=== PATIENT | female | born 1945 | race Caucasian/White ===

== ENCOUNTER 2016-04-23 22:12 | Observation (INO) | payer MEDICARE, BC, OTHER ==
[2016-04-23] MEDS ORDERED: SODIUM CHLORIDE 0.9% 1,000 ML IV STA ×2 (22:24)
[2016-04-23] MEDS ORDERED: MORPHINE SULFATE 4 MG/ML SYRINGE IV STA (22:24)
[2016-04-23] MEDS ORDERED: SODIUM CHLORIDE 0.9% 500 ML IV STA (22:24)
[2016-04-23] MEDS ORDERED: RX INFO: IV CONTRAST WAS GIVEN 1 EACH MISC MISCELLANE PRN (22:24)
--- NOTE | 2016-04-23 22:25 | ED ---
General Adult HPI - General Chief complaint: Chest Pain Stated complaint: Chest Pain Time Seen by Provider: 04/23/16 22:24 Source: patient, RN notes reviewed, old records reviewed Mode of arrival: wheelchair Limitations: no limitations - History of Present Illness Initial comments: This is a 71-year-old female the ER for evaluation of chest pain. Patient has significant central chest pain rating to her back with no shortness of breath. No recent fever cough or congestion. Patient has history of her myalgias and no active disease. No [place] for DVT or pushing no sick contacts again no fevers cough or congestion - Related Data Home Medications Medication Instructions Recorded Confirmed Ascorbic Acid [Vitamin C] 500 mg PO DAILY 05/08/15 04/23/16 Calcium Carbonate [Calcium] 600 mg PO HS 05/08/15 04/23/16 Calcium/Magnesium/Zinc 1 tab PO HS 05/08/15 04/23/16 [Fncvgia-Oxwkyenxu-Powt Tablet] Cholecalciferol [Vitamin D3] 1,000 unit PO DAILY 05/08/15 04/23/16 Chromium Picolinate 1,000 mcg PO DAILY 05/08/15 04/23/16 Folic Acid 0.4 mg PO DAILY 05/08/15 04/23/16 Levothyroxine Sodium [Synthroid] 75 mcg PO DAILY 05/08/15 04/23/16 Multivitamin/Iron/Folic Acid 1 each PO DAILY 05/08/15 04/23/16 [Centrum Complete Multivit Tab] Pantoprazole Sodium [Protonix] 40 mg PO DAILY 05/08/15 04/23/16 Ubidecarenone [Co Q-10] 100 mg PO DAILY 05/08/15 04/23/16 Vitamin E 1,000 unit PO DAILY 05/08/15 04/23/16 Zinc 50 mg PO DAILY 05/08/15 04/23/16 traZODone HCL [Desyrel] 25 - 50 mg PO HS 05/08/15 04/23/16 Aspirin EC [Ecotrin] 325 mg PO HS 04/23/16 04/23/16 Fish Oil/Dha/Epa [Fish Oil 1,200 1 cap PO DAILY 04/23/16 04/23/16 mg Fish Oil] Pravastatin Sodium [Pravachol] 20 mg PO TUSA 04/23/16 04/23/16 Progesterone,Micronized 100 mg PO HS 04/23/16 04/23/16 [Prometrium] Ranitidine HCl [Zantac] 150 mg PO BID 04/23/16 04/23/16 Vivelle-Dot 0.025 Mg Patch 1 patch TRANSDERM TUSA 04/23/16 04/23/16 Allergies Allergy/AdvReac Type Severity Reaction Status Date / Time meperidine [From Demerol] AdvReac Unknown Verified 04/23/16 23:02 Review of Systems ROS Statement: Those systems with pertinent positive or pertinent negative responses have been documented in the HPI. ROS Other: All systems not noted in ROS Statement are negative. Past Medical History Past Medical History: Fibromyalgia, GERD/Reflux, Thyroid Disorder Additional Past Medical History / Comment(s): sinus problems History of Any Multi-Drug Resistant Organisms: None Reported Past Surgical History: Section Additional Past Surgical History / Comment(s): colonoscopy,egd Past Anesthesia/Blood Transfusion Reactions: No Reported Reaction Additional Past Anesthesia/Blood Transfusion Reaction / Comment(s): PT STATES SHE WAS ON AN ANTIBIOTIC FOR AN INFECTED TOOTH; LEFT LOWER. CAP ON TOOTH IS A LITTLE LOOSE. HAVING HEAD PAIN ON THE LEFT SIDE OF HER HEAD; THINKS IT MAY BE FROM HER TOOTH. Past Psychological History: Anxiety, Depression Smoking Status: Never smoker Past Alcohol Use History: Daily Past Drug Use History: None Reported - Past Family History Mother Family Medical History: Cancer, Deep Vein Thrombosis (DVT) General Exam Limitations: no limitations General appearance: alert, in no apparent distress Head exam: Present: atraumatic, normocephalic, normal inspection Eye exam: Present: normal appearance, PERRL, EOMI. Absent: scleral icterus, conjunctival injection, periorbital swelling ENT exam: Present: normal exam, mucous membranes moist Neck exam: Present: normal inspection. Absent: tenderness, meningismus, lymphadenopathy Respiratory exam: Present: normal lung sounds bilaterally. Absent: respiratory distress, wheezes, rales, rhonchi, stridor Cardiovascular Exam: Present: regular rate, normal rhythm, normal heart sounds. Absent: systolic murmur, diastolic murmur, rubs, gallop, clicks GI/Abdominal exam: Present: soft, normal bowel sounds. Absent: distended, tenderness, guarding, rebound, rigid Extremities exam: Present: normal inspection, full ROM, normal capillary refill. Absent: tenderness, pedal edema, joint swelling, calf tenderness Back exam: Present: normal inspection Neurological exam: Present: alert, oriented X3, CN II-XII intact Psychiatric exam: Present: normal affect, normal mood Skin exam: Present: warm, dry, intact, normal color. Absent: rash Course Vital Signs 04/23/16 04/23/16 22:21 23:20 Temperature 97.6 F Pulse Rate 84 81 Respiratory 20 16 Rate Blood Pressure 149/75 131/84 O2 Sat by Pulse 96 97 Oximetry - Reevaluation(s) Reevaluation #1: 04/24/16 00:30 Patient states her pain is improved with pain control, still concern for her heart EKG Findings - EKG Comments: EKG Findings:: EKG shows normal sinus rhythm rate of 72, RI 142, QRS 80, QTC 402 Medical Decision Making - Medical Decision Making 67 female the ER for evaluation. History of her last and no significant cardiac risk factors coming in with chest pain rating to her back, CT is negative for PE or aortic disease, lipase negative no abdominal tenderness. Patient's initial EKG and troponin are negative and will be admitted for cardiac evaluation and treatment, trending up troponin anticoagulation and monitoring of cardiopulmonary status - Lab Data Result diagrams: 04/23/16 22:25 04/23/16 22:25 Lab Results 04/23/16 04/23/16 04/23/16 Range/Units 22:25 22:25 22:25 WBC 9.7 (3.8-10.6) k/uL RBC 4.37 (3.80-5.40) m/uL Hgb 13.4 (11.4-16.0) gm/dL Hct 40.1 (34.0-46.0) % MCV 91.8 (80.0-100.0) fL MCH 30.6 (25.0-35.0) pg MCHC 33.4 (31.0-37.0) g/dL RDW 12.7 (11.5-15.5) % Plt Count 302 (150-450) k/uL Neutrophils % 62 % Lymphocytes % 27 % Monocytes % 7 % Eosinophils % 1 % Basophils % 2 % Neutrophils # 6.0 (1.3-7.7) k/uL Lymphocytes # 2.6 (1.0-4.8) k/uL Monocytes # 0.6 (0-1.0) k/uL Eosinophils # 0.1 (0-0.7) k/uL Basophils # 0.2 (0-0.2) k/uL PT (9.0-12.0) sec INR (<1.1) APTT (22.0-30.0) sec D-Dimer (<0.60) mg/L FEU Sodium 141 (137-145) mmol/L Potassium 4.4 (3.5-5.1) mmol/L Chloride 103 (98-107) mmol/L Carbon Dioxide 26 (22-30) mmol/L Anion Gap 12 mmol/L BUN 16 (7-17) mg/dL Creatinine 0.92 (0.52-1.04) mg/dL Est GFR (MDRD) Af Amer >60 (>60 ml/min/1.73 sqM) Est GFR (MDRD) Non-Af >60 (>60 ml/min/1.73 sqM) Glucose 105 H (74-99) mg/dL Calcium 9.4 (8.4-10.2) mg/dL Magnesium 1.8 (1.6-2.3) mg/dL Total Bilirubin 0.4 (0.2-1.3) mg/dL AST 26 (14-36) U/L ALT 32 (9-52) U/L Alkaline Phosphatase 66 (38-126) U/L Total Creatine Kinase 59 (30-135) U/L CK-MB (CK-2) 0.6 (0.0-2.4) ng/mL CK-MB (CK-2) Rel Index 1.0 Troponin I <0.012 (0.000-0.034) ng/mL Total Protein 7.4 (6.3-8.2) g/dL Albumin 4.0 (3.5-5.0) g/dL Lipase 181 (23-300) U/L 04/23/16 Range/Units 22:25 WBC (3.8-10.6) k/uL RBC (3.80-5.40) m/uL Hgb (11.4-16.0) gm/dL Hct (34.0-46.0) % MCV (80.0-100.0) fL MCH (25.0-35.0) pg MCHC (31.0-37.0) g/dL RDW (11.5-15.5) % Plt Count (150-450) k/uL Neutrophils % % Lymphocytes % % Monocytes % % Eosinophils % % Basophils % % Neutrophils # (1.3-7.7) k/uL Lymphocytes # (1.0-4.8) k/uL Monocytes # (0-1.0) k/uL Eosinophils # (0-0.7) k/uL Basophils # (0-0.2) k/uL PT 10.2 (9.0-12.0) sec INR 1.0 (<1.1) APTT 23.4 (22.0-30.0) sec D-Dimer 0.29 (<0.60) mg/L FEU Sodium (137-145) mmol/L Potassium (3.5-5.1) mmol/L Chloride (98-107) mmol/L Carbon Dioxide (22-30) mmol/L Anion Gap mmol/L BUN (7-17) mg/dL Creatinine (0.52-1.04) mg/dL Est GFR (MDRD) Af Amer (>60 ml/min/1.73 sqM) Est GFR (MDRD) Non-Af (>60 ml/min/1.73 sqM) Glucose (74-99) mg/dL Calcium (8.4-10.2) mg/dL Magnesium (1.6-2.3) mg/dL Total Bilirubin (0.2-1.3) mg/dL AST (14-36) U/L ALT (9-52) U/L Alkaline Phosphatase (38-126) U/L Total Creatine Kinase (30-135) U/L CK-MB (CK-2) (0.0-2.4) ng/mL CK-MB (CK-2) Rel Index Troponin I (0.000-0.034) ng/mL Total Protein (6.3-8.2) g/dL Albumin (3.5-5.0) g/dL Lipase (23-300) U/L - Radiology Data Radiology results: report reviewed (CT angios chest negative for PE, aortic disease), image reviewed Critical Care Time Critical Care Time: Yes Total Critical Care Time: 31 Disposition Clinical Impression: Chest pain Disposition: ADMITTED IP TO THIS [facility] Condition: Undetermined Referrals: Anatoly Villegas DO [Primary Care Provider] - 1-2 days
[2016-04-23 22:50] LABS: Basophils # (A) 0.2 k/uL (0-0.2); Basophils % (A) 2 %; CH 31.8; CHCM 34.8; Eosinophils # (A) 0.1 k/uL (0-0.7); Eosinophils % (A) 1 %; HCT 40.1 % (34.0-46.0); HDW 2.54; HGB 13.4 gm/dL (11.4-16.0); Luc # (Auto) 0.14; Luc % (Auto) 1; Lymphocytes # (A) 2.6 k/uL (1.0-4.8); Lymphocytes % (A) 27 %; MCH 30.6 pg (25.0-35.0); MCHC 33.4 g/dL (31.0-37.0); MCV 91.8 fL (80.0-100.0); Mean Platelet Volume 7.5; Monocytes # (A) 0.6 k/uL (0-1.0); Monocytes % (A) 7 %; Neutrophils % (A) 62 %; RBC 4.37 m/uL (3.80-5.40); RDW 12.7 % (11.5-15.5); WBC 9.7 k/uL (3.8-10.6); WBC (Perox) 9.74
[2016-04-23 23:03] LABS: Partial Thromboplastin Time 23.4 sec (22.0-30.0); Prothrombin Time 10.2 sec (9.0-12.0)
[2016-04-23 23:16] LABS: Carbon Dioxide 26 mmol/L (22-30); Chloride 103 mmol/L (98-107); Glucose 105 mg/dL (74-99); Potassium 4.4 mmol/L (3.5-5.1); Sodium 141 mmol/L (137-145)
[2016-04-23 23:17] LABS: ALT 32 U/L (9-52); AST 26 U/L (14-36); Alkaline Phosphatase 66 U/L (38-126); Anion Gap 12 mmol/L; Blood Urea Nitrogen 16 mg/dL (7-17); Calcium 9.4 mg/dL (8.4-10.2); Creatine Kinase 59 U/L (30-135); Magnesium 1.8 mg/dL (1.6-2.3); Non-African American GFR(MDRD) >60 (>60 ml/min/1.73 sqM); Total Bilirubin 0.4 mg/dL (0.2-1.3); Total Protein 7.4 g/dL (6.3-8.2)
[2016-04-23 23:27] LABS: Creatine Kinase MB 0.6 ng/mL (0.0-2.4); Troponin I <0.012 ng/mL (0.000-0.034)
--- NOTE | 2016-04-24 00:02 | CT ---
EXAMINATION TYPE: CT angio chest DATE OF EXAM: 04/23/2016 11:56 PM COMPARISON: NONE HISTORY: chest and back pain CT DLP: 203.90 mGycm Automated exposure control for dose reduction was used. CONTRAST: CTA scan of the thorax is performed with IV Contrast, patient injected with 70 mL of Omnipaque 350, p ulmonary embolism protocol. . FINDINGS: There are 3-D post processed images. The lungs are clear of consolidation. There is mild subsegmental atelectasis at the lung bases. There is no pleural effusion. Heart is slightly enlarged. There is no pericardial effusion. There is no evidence of aortic aneurysm or dissection. I see no filling defect s in the pulmonary arteries. IMPRESSION: MILD SUBSEGMENTAL ATELECTASIS AT THE LUNG BASES. MILD CARDIOMEGALY. NO EVIDENCE OF PULMONARY EMBOLISM .
[2016-04-24] MEDS ORDERED: ASPIRIN 81 MG CHEW PO STA (00:28)
[2016-04-24] MEDS ORDERED: HEPARIN SODIUM,PORCINE 5,000 UNIT/ML 1 ML VIAL IV PRN (00:28)
[2016-04-24] MEDS ORDERED: MORPHINE SULFATE 4 MG/ML SYRINGE IV PRN (00:28)
[2016-04-24] MEDS ORDERED: NITROGLYCERIN SL TABS 0.4 MG TAB SUBLINGUAL PRN (00:28)
[2016-04-24] MEDS ORDERED: HEPARIN SODIUM,PORCINE 5,000 UNIT/ML 1 ML VIAL IV ONE (00:28)
[2016-04-24] MEDS: HEPARIN SODIUM,PORCINE/D5W PMX 25,000 UNIT in DEXTROSE/WATER 1 500ML.BAG IV SCH (01:38)
[2016-04-24 05:44] LABS: Mean Platelet Volume 7.6
[2016-04-24 06:24] LABS: Creatine Kinase 51 U/L (30-135)
[2016-04-24 06:36] LABS: Creatine Kinase MB 0.8 ng/mL (0.0-2.4); Troponin I <0.012 ng/mL (0.000-0.034)
[2016-04-24 10:17] LABS: Glucose,Whole Blood 93 mg/dL (75-99)
[2016-04-24 11:26] LABS: Creatine Kinase 51 U/L (30-135)
[2016-04-24 11:40] LABS: Troponin I <0.012 ng/mL (0.000-0.034)
[2016-04-24] MEDS: PANTOPRAZOLE 40 MG TABLET PO SCH (12:34)
[2016-04-24] MEDS: LEVOTHYROXINE 75 MCG TAB PO SCH ×2 (12:34→13:13)
[2016-04-24] MEDS: SODIUM CHLORIDE 0.9% 1,000 ML IV SCH ×2 (12:36)
--- NOTE | 2016-04-24 14:52 | HP ---
DATE OF ADMISSION: 04/24/2016 PRESENTING COMPLAINT: Chest pain. HISTORY OF PRESENTING COMPLAINT: This is a pleasant 71-year-old patient of Dr. Villegas, whose chronic stable medical conditions include fibromyalgia, GERD, hyperlipidemia, hypothyroidism. Patient has been having upper respiratory tract infection symptoms, started out with a sore throat, stuffy nose, ears plugged, got a cough, congested. Patient presented after she developed a mid-back pain going to the right shoulder and it to the front. Patient did feel tired, not much short of breath. No dizziness. No fever. Patient ( ) she decided to present here. REVIEW OF SYSTEMS: CONSTITUTIONAL: Tired. HEENT: As above. RESPIRATORY: As above. CARDIOVASCULAR: As above. GASTROINTESTINAL: Heartburn. GENITOURINARY: None. MUSCULOSKELETAL: Aches and pains in the joints. DERMATOLOGICAL: None. HEMATOLOGICAL: None. LYMPHATICS: None. PSYCHIATRY: None. NEUROLOGICAL: None. Past history of fibromyalgia, GERD, hyperlipidemia, hypothyroidism. PAST SURGICAL HISTORY: , colonoscopy, EGD. SOCIAL HISTORY: Patient drinks three 6 ounces of wine a day. No smoking, . Family history of DVT and mother had colon cancer. HOME MEDICATIONS: 1. Zantac 150 mg p.o. b.i.d. 2. Vivelle-Dot 0.025 patch Thursday and Thursday. 3. Prometrium 100 mg p.o. q.h.s. 4. Fish oil 1 capsule p.o. daily. 5. Aspirin 325 mg p.o. q.h.s. 6. Pravachol 20 mg p.o. Thursday and Thursday. 7. Calcium magnesium zinc 1 tablet p.o. q.h.s. 8. Desyrel 25 to 50 mg p.o. q.h.s. 9. Zinc 50 mg p.o. daily. 10. Vitamin E 1000 units p.o. daily. 11. CoQ10 one hundred mg p.o. daily. 12. Protonix 40 mg p.o. daily. 13. Centrum complete multivitamin 1 tablet p.o. daily. 14. Synthroid 75 mcg p.o. daily. 15. Folic acid 0.4 mg p.o. daily. 16. Chromium 1000 mcg p.o. daily. 17. Vitamin D3 one thousand units p.o. daily. 18. Vitamin C 500 mg p.o. daily. Allergies to DEMEROL. On examination, vital signs on presentation, temperature 97.6, pulse 84, respiration 20, blood pressure 149/75, pulse ox 96% on room air. GENERAL APPEARANCE: Average build, lying in bed, not in distress. EYES: Pupils equal. Conjunctivae normal. HEENT: External appearance of nose and ears normal. Oral cavity normal. NECK: JVD not raised. Mass not palpable. Respiratory effort normal. LUNGS: Fair air entry. CARDIOVASCULAR: First and second sounds normal. No edema. ABDOMEN: Soft, nontender. Liver and spleen not palpable. LYMPHATIC: No lymph node palpable in neck or axillae. PSYCHIATRY: Alert and oriented x3. Mood and affect normal. NEUROLOGICAL: Pupils equal. Cranial nerves grossly intact. Power and sensation grossly intact. INVESTIGATIONS: White count 9.7, hemoglobin 13.4, platelets 302, potassium 4.4. Troponins x2 are negative. D-dimer 0.29. Chest CTA shows mild subsegmental atelectasis. EKG normal sinus rhythm. ASSESSMENT: 1. This is a patient who presented with sharp chest pain, preceded by viral upper respiratory tract infection-like symptoms, most likely we are dealing with a viral pleurisy here. Patient's troponins are negative. EKG's are unremarkable, but needs to rule out a cardiac cause. 2. Chronic fibromyalgia. 3. Chronic gastroesophageal reflux disease. 4. Chronic hyperlipidemia. 5. Hypothyroidism. PLAN: Home medications are resumed. Cardiac enzymes are in place. Cardiology was consulted. Care was discussed with the patient. ER has started the patient on IV heparin.
[2016-04-24] MEDS ORDERED: ACETAMINOPHEN TAB 325 MG TAB PO PRN (16:58)
[2016-04-24] MEDS ORDERED: PROGESTERONE MICRONIZED 100 MG PO SCH (21:00)
[2016-04-24] MEDS ORDERED: FAMOTIDINE 20 MG TAB PO PRN (21:36)
[2016-04-24] MEDS ORDERED: traZODone HCL 50 MG TAB PO SCH (21:45)
[2016-04-24 22:08] LABS: Glucose,Whole Blood 116 mg/dL (75-99)
[2016-04-24] MEDS ORDERED: BENZOCAINE/MENTHOL LOZENG 1 EACH LOZENGE MUCOUS MEM PRN (23:00)
[2016-04-25] MEDS: SODIUM CHLORIDE 0.9% 1,000 ML IV SCH ×2 (04:32→04:36)
[2016-04-25] MEDS: HEPARIN SODIUM,PORCINE/D5W PMX 25,000 UNIT in DEXTROSE/WATER 1 500ML.BAG IV SCH (04:34)
[2016-04-25] MEDS: LEVOTHYROXINE 75 MCG TAB PO SCH (05:15)
[2016-04-25 07:29] LABS: Mean Platelet Volume 7.8
[2016-04-25 07:46] LABS: Cholesterol 158 mg/dL (<200); HDL Cholesterol 47 mg/dL (40-60); Triglycerides 94 mg/dL (<150)
[2016-04-25 07:52] VITALS: BP 100/74; PULSE 68; RESP 18; TEMP 98.1
--- NOTE | 2016-04-25 08:53 | CONS ---
DATE OF CONSULTATION: Georgia Weston is a 71-year-old female who was sitting with her mother when she started experiencing upper back discomfort and this started radiating to the front into her chest and she got worried and came to the hospital. She denied any nausea, sweating or any other symptoms. She did have a stuffy nose prior to that time and thought she had pleurisy. Upon admission chest CT did not show any major abnormalities, but this was a pulmonary embolism protocol. There was no evidence of pulmonary embolism. Her blood pressure was 111/68 mmHg. Past history of dyslipidemia. She is on Pravachol. She also takes full aspirin for her upper back at night. She complains of muscle aches and pains and says she has fibromyalgia. REVIEW OF SYSTEMS: No fever, chills, rigors. No cough or expectoration. She did have a runny nose. No hematuria, dysuria, strokes or seizures. No nausea. No skin lesions. No musculoskeletal complaints. ALLERGIES TO DEMEROL. On examination, her blood pressure initially was 149/75, but otherwise has been in the normal range now. Heart rates in the 80s. Head and neck examination is normal. Heart sounds are normal. No rub, no gallop. Breath sounds are normal. No rhonchi. No crackles. Abdomen is soft, nontender. Extremities are warm. No edema. SOCIAL HISTORY: She drinks wine every day. No smoking either. Family history of DVT and colon cancer. Home medications include Zantac, Vivelle, Prometrium, fish oil, aspirin, Pravachol, Desyrel, zinc, Coenzyme Q10, chromium and vitamins and Synthroid 75 mcg daily. LABS: Three cardiac enzymes are normal. The patient continues to have upper back discomfort which has not let up. Throughout the admission her cardiac enzymes are normal and two serial EKGs are normal. IMPRESSION: Atypical upper back and chest discomfort with no evidence for pulmonary embolism by cardiac CT. No evidence for any myocardial injury. Two serial ECGs are normal, three serial cardiac enzymes are normal. The patient continues to have upper back discomfort. She has had it throughout this admission. SUGGEST: From a cardiac standpoint, she can go home. She should continue aspirin, at least 2 baby aspirins a day as well as Pravachol and outpatient follow-up will be arranged. From a cardiac standpoint patient may go home.
[2016-04-25] MEDS: PANTOPRAZOLE 40 MG TABLET PO SCH (08:54)
[2016-04-25] MEDS ORDERED: ASPIRIN 325 MG TAB PO SCH (09:00)
[2016-04-26] MEDS ORDERED: PRAVASTATIN SODIUM 20 MG TAB PO SCH (09:00)
--- NOTE | 2016-04-26 13:12 | DS ---
DATE OF ADMISSION: 04/24/2016 DATE OF DISCHARGE: 04/25/2016 FINAL DIAGNOSES: 1. Chest pain, probably from viral pleurisy. 2. Chronic fibromyalgia. 3. Chronic gastroesophageal reflux disease. 4. Chronic hyperlipidemia. 5. Hypothyroidism. HOSPITAL COURSE: This patient presented with chest pain, felt to be viral pleurisy. Seen by Dr. Jeffrey Nicole, not for any further workup. Troponins were negative. Chest CT was negative for PE. DISCHARGE MEDICATIONS: 1. Vitamin C 500 mg a day. 2. Calcium 600 one tablet p.o. q.h.s. 3. Calcium magnesium zinc tablet one tablet p.o. q.h.s. 4. Vitamin D3, 1000 units p.o. daily. 5. Chromium 1000 mcg p.o. daily. 6. Folic acid 0.4 mg p.o. daily. 7. Synthroid 75 mcg p.o. daily. 8. Centrum Complete 1 tablet p.o. daily. 9. Protonix 40 mg p.o. daily. 10. CoQ10, 100 mg p.o. daily. 11. Vitamin E 1000 units p.o. daily. 12. Zinc 50 mg p.o. daily. 13. Desyrel 25 to 50 one tablet q.h.s. 14. Aspirin 325 p.o. q.h.s. 15. Fish oil 1 capsule p.o. daily. 16. Pravachol 20 mg p.o. on Thursday and Thursday. 17. Prometrium 100 mg p.o. q.h.s. 18. Zantac 150 mg p.o. b.i.d. 19. Vivelle-Dot 1 patch transderm Thursday, Thursday. Follow up with Dr. Nicole in 2 weeks. Follow up with Dr. Villegas in 3 days. ON EXAM: LUNGS: Clear. CARDIOVASCULAR: First and second sounds normal.
== END 2016-04-25 14:36 | disposition home or self-care (01) ==
LOC: EC 22:12 → 3OBS 04-24 00:28
PROVIDERS: ADMIT Hospitalist; ATTEND Hospitalist
DX: R07.89 Other chest pain (principal); M79.7 Fibromyalgia; K21.9 Gastro-esophageal reflux disease without esophagitis; E78.5 Hyperlipidemia, unspecified; E03.9 Hypothyroidism, unspecified; M54.9 Dorsalgia, unspecified; F41.9 Anxiety disorder, unspecified; F32.9 Major depressive disorder, single episode, unspecified; Z79.82 Long term (current) use of aspirin; Z79.899 Other long term (current) drug therapy; Z88.5 Allergy status to narcotic agent; Z80.0 Family history of malignant neoplasm of digestive organs; Z82.49 Family history of ischemic heart disease and other diseases of the circulatory system
CPT/HCPCS: 36415; 93005 ×2; 85379; 80061; 80053; 82550 ×2; 82553 ×2; 83690; 83735; 84484 ×2; 85025; 85049 ×2; 85610; 85730 ×3; 71275; 99291; 96365; 96366 ×11; 96375; 96376 ×2; 96361 ×2; G0378 ×2; J2270 ×2; J1644 ×3; Q9967

== ENCOUNTER 2017-07-22 18:26 | Emergency (ER) | payer MEDICARE, BC, OTHER ==
[2017-07-22 18:37] VITALS: TEMP 97.9
[2017-07-22] MEDS ORDERED: SODIUM CHLORIDE 0.9% 1,000 ML IV STA (19:05)
[2017-07-22] MEDS ORDERED: MAG HYDROX/AL HYDROX/SIMETH 30 ML, HYOSCYAMINE ELIXIR 10 ML, CIMETIDINE HCL 300 MG, LID... PO STA ×4 (19:06)
--- NOTE | 2017-07-22 19:11 | ED ---
General Adult HPI - General Chief complaint: Abdominal Pain Stated complaint: abdominal pain Time Seen by Provider: 07/22/17 18:42 Source: patient, family, EMS Mode of arrival: EMS Limitations: no limitations - History of Present Illness Initial comments: 72-year-old female patient presents to the emergency department today for evaluation of dizziness, vomiting, and diarrhea. Patient states that she has been having dizziness on and off for the last couple of months. States that with this most recent episode started yesterday morning prior to a shopping trip. States that she felt fine throughout the day and then became woozy again last evening. States that throughout the day today she has been having dry heaves, and multiple episodes of diarrhea. States that just prior to arrival she did have 2 episodes of vomiting and she did pass out twice. Patient states that her head feels "fuzzy" like it is "full of cotton". Patient does have a history of acid reflux and has been taking antacids without much relief of her symptoms. She denies any chest pain, shortness of breath, abdominal pain, back pain, headache, fever, or chills. Patient denies any recent rash, numbness, tingling, visual changes, or any other complaints. - Related Data Home Medications Medication Instructions Recorded Confirmed Levothyroxine Sodium [Synthroid] 75 mcg PO DAILY 05/08/15 07/22/17 Pantoprazole Sodium [Protonix] 40 mg PO DAILY 05/08/15 07/22/17 traZODone HCL [Desyrel] 25 mg PO HS 05/08/15 07/22/17 Ranitidine HCl [Zantac] 150 mg PO BID 04/23/16 07/22/17 Loperamide [Imodium] 2 mg PO QID PRN 07/22/17 07/22/17 Mag Hydrox/Al Hydrox/Simeth 30 ml PO DAILY PRN 07/22/17 07/22/17 [Maalox] Previous Rx's Medication Instructions Recorded Ondansetron [Zofran ODT] 4 mg PO Q8HR PRN #10 tab 07/22/17 Allergies Allergy/AdvReac Type Severity Reaction Status Date / Time meperidine [From Demerol] AdvReac Unknown Verified 07/22/17 18:30 Review of Systems ROS Statement: Those systems with pertinent positive or pertinent negative responses have been documented in the HPI. ROS Other: All systems not noted in ROS Statement are negative. Past Medical History Past Medical History: Fibromyalgia, GERD/Reflux, Hyperlipidemia, Thyroid Disorder Additional Past Medical History / Comment(s): sinus problems, hypothyoidism. History of Any Multi-Drug Resistant Organisms: None Reported Past Surgical History: Section Additional Past Surgical History / Comment(s): colonoscopy,egd Past Anesthesia/Blood Transfusion Reactions: No Reported Reaction Additional Past Anesthesia/Blood Transfusion Reaction / Comment(s): PT STATES SHE WAS ON AN ANTIBIOTIC FOR AN INFECTED TOOTH; LEFT LOWER. CAP ON TOOTH IS A LITTLE LOOSE. HAVING HEAD PAIN ON THE LEFT SIDE OF HER HEAD; THINKS IT MAY BE FROM HER TOOTH. Past Psychological History: Anxiety, Depression Smoking Status: Never smoker Past Alcohol Use History: Daily Past Drug Use History: None Reported - Past Family History Mother Family Medical History: Cancer, Deep Vein Thrombosis (DVT) Additional Family Medical History / Comment(s): Mother had colon cancer. She is 91 yrs old. Father History Unknown: Yes General Exam Limitations: no limitations General appearance: alert, in no apparent distress Eye exam: Present: normal appearance, PERRL, EOMI. Absent: scleral icterus, conjunctival injection, periorbital swelling ENT exam: Present: normal exam, normal oropharynx, mucous membranes moist Respiratory exam: Present: normal lung sounds bilaterally. Absent: respiratory distress, wheezes, rales, rhonchi, stridor Cardiovascular Exam: Present: regular rate, normal rhythm, normal heart sounds. Absent: systolic murmur, diastolic murmur, rubs, gallop, clicks GI/Abdominal exam: Present: soft, tenderness (Mild upper abdominal tenderness), normal bowel sounds. Absent: distended, guarding, rebound, rigid Neurological exam: Present: alert, oriented X3, CN II-XII intact Psychiatric exam: Present: normal affect, normal mood Skin exam: Present: warm, dry, intact, normal color. Absent: rash Course Vital Signs 07/22/17 07/22/17 07/22/17 18:30 20:11 21:35 Temperature 97.9 F Pulse Rate 74 82 Respiratory 20 20 Rate Blood Pressure 113/83 107/60 O2 Sat by Pulse 99 95 Oximetry 07/22/17 21:59 Temperature Pulse Rate 82 Respiratory 18 Rate Blood Pressure 102/57 O2 Sat by Pulse 95 Oximetry EKG Findings - EKG Comments: EKG Findings:: EKG obtained at 2006 shows normal sinus rhythm with low voltage QRS. Ventricular rate is 72, P return of a 146, QRS duration 70, QT 386, QTc 422. No evidence of ST elevation or depression. Medical Decision Making - Medical Decision Making 72-year-old female patient presented to the emergency department today for evaluation of vomiting, diarrhea, and dizziness. Physical examination showed some mild diffuse abdominal tenderness. Labs reviewed and were unremarkable except for an elevated amylase at 120 and lipase at 317. Patient had no particular increased tenderness to the midepigastric region. KUB x-ray of the abdomen was normal. Patient did receive IV fluids, antiemetics, and does feel better at time of reevaluation. As patient does have diarrhea and vomiting did discuss the possibility of this being a gastroenteritis. As for the dizziness patient has been having intermittent episodes similar to this over the last month. Did discuss possibility of vertigo however patient does not want to be started on any medication for this until she follows up with her doctor. We will give her prescription for Zofran. She is instructed to return here immediately for any new, worsening, or concerning symptoms. She verbalizes understanding and agrees with this plan. - Lab Data Result diagrams: 07/22/17 19:37 07/22/17 19:37 Lab Results 07/22/17 07/22/17 07/22/17 Range/Units 19:37 19:37 19:37 WBC 9.7 (3.8-10.6) k/uL RBC 4.76 (3.80-5.40) m/uL Hgb 14.9 (11.4-16.0) gm/dL Hct 42.8 (34.0-46.0) % MCV 89.9 (80.0-100.0) fL MCH 31.3 (25.0-35.0) pg MCHC 34.8 (31.0-37.0) g/dL RDW 13.2 (11.5-15.5) % Plt Count 312 (150-450) k/uL Neutrophils % 90 % Lymphocytes % 5 % Monocytes % 4 % Eosinophils % 1 % Basophils % 0 % Neutrophils # 8.7 H (1.3-7.7) k/uL Lymphocytes # 0.5 L (1.0-4.8) k/uL Monocytes # 0.4 (0-1.0) k/uL Eosinophils # 0.1 (0-0.7) k/uL Basophils # 0.0 (0-0.2) k/uL Sodium 139 (137-145) mmol/L Potassium 4.5 (3.5-5.1) mmol/L Chloride 103 (98-107) mmol/L Carbon Dioxide 24 (22-30) mmol/L Anion Gap 12 mmol/L BUN 18 H (7-17) mg/dL Creatinine 0.90 (0.52-1.04) mg/dL Est GFR (CKD-EPI)AfAm 75 (>60 ml/min/1.73 sqM) Est GFR (CKD-EPI)NonAf 65 (>60 ml/min/1.73 sqM) Glucose 126 H (74-99) mg/dL Calcium 9.8 (8.4-10.2) mg/dL Total Bilirubin 0.7 (0.2-1.3) mg/dL AST 26 (14-36) U/L ALT 23 (9-52) U/L Alkaline Phosphatase 74 (38-126) U/L Total Creatine Kinase 70 (30-135) U/L CK-MB (CK-2) 0.8 (0.0-2.4) ng/mL CK-MB (CK-2) Rel Index 1.1 Troponin I <0.012 (0.000-0.034) ng/mL Total Protein 7.1 (6.3-8.2) g/dL Albumin 4.0 (3.5-5.0) g/dL Amylase 120 H (30-110) U/L Lipase 317 H (23-300) U/L - Radiology Data Radiology results: report reviewed, image reviewed Two-view x-ray of the abdomen shows bowel gas pattern is normal. No sign of intestinal structure pneumoperitoneum. Fecal pattern is normal. There is a small area of infiltrate or atelectasis at the left lung base. Impression by Dr. Armenta shows small area of pleural reaction or atelectasis at the left lung base is increased compared to old exam. Nonacute abdomen. Disposition Clinical Impression: Gastroenteritis Disposition: HOME SELF-CARE Condition: Good Instructions: Gastroenteritis (ED), Acute Nausea and Vomiting (ED), Acute Diarrhea (ED) Additional Instructions: Increase fluids. Follow-up with your primary care physician for recheck in 1-2 days. Return here immediately for any new, worsening, or concerning symptoms. Prescriptions: Ondansetron [Zofran ODT] 4 mg PO Q8HR PRN #10 tab PRN Reason: Nausea Is patient prescribed a controlled substance at d/c from ED?: No Referrals: Anatoly Villegas DO [Primary Care Provider] - 1-2 days Time of Disposition: 22:13
[2017-07-22 20:09] LABS: Basophils % (A) 0 %; Eosinophils # (A) 0.1 k/uL (0-0.7); Eosinophils % (A) 1 %; HCT 42.8 % (34.0-46.0); HGB 14.9 gm/dL (11.4-16.0); Lymphocytes # (A) 0.5 k/uL (1.0-4.8); Lymphocytes % (A) 5 %; MCH 31.3 pg (25.0-35.0); MCHC 34.8 g/dL (31.0-37.0); MCV 89.9 fL (80.0-100.0); Mean Platelet Volume 6.7; Monocytes # (A) 0.4 k/uL (0-1.0); Monocytes % (A) 4 %; Neutrophils # (A) 8.7 k/uL (1.3-7.7); Neutrophils % (A) 90 %; Platelet Count 312 k/uL (150-450); RBC 4.76 m/uL (3.80-5.40); RDW 13.2 % (11.5-15.5); WBC 9.7 k/uL (3.8-10.6)
[2017-07-22 20:10] LABS: Calcium 9.8 mg/dL (8.4-10.2); Creatine Kinase 70 U/L (30-135); Potassium 4.5 mmol/L (3.5-5.1); Total Bilirubin 0.7 mg/dL (0.2-1.3); Total Protein 7.1 g/dL (6.3-8.2)
[2017-07-22 20:21] LABS: Creatine Kinase MB 0.8 ng/mL (0.0-2.4); Troponin I <0.012 ng/mL (0.000-0.034)
--- NOTE | 2017-07-22 20:23 | XR ---
EXAMINATION TYPE: XR KUB DATE OF EXAM: 07/22/2017 COMPARISON: 03/18/1710 HISTORY: Abdominal pain TECHNIQUE: 2 views FINDINGS: Bowel gas pattern is normal. There is no sign of intestinal obstruction or pneumoperitoneum . Fecal pattern is normal. There is a small area of infiltrate or atelectasis at the left lung base. IMPRESSION: Small area of pleural reaction or atelectasis at the left lung base is increased compared to old exam. Nonacute abdomen.
[2017-07-22 22:01] VITALS: BP 102/57; PULSE 82; RESP 18
[2017-07-22] MEDS ORDERED: ONDANSETRON 4 MG ODT STARTER PACK 2 TAB BTL PO STA (22:24)
== END 2017-07-22 22:43 | disposition home or self-care (01) ==
LOC: EC 18:26
DX: K52.9 Noninfective gastroenteritis and colitis, unspecified (principal); K21.9 Gastro-esophageal reflux disease without esophagitis; E03.9 Hypothyroidism, unspecified; F41.9 Anxiety disorder, unspecified; F32.9 Major depressive disorder, single episode, unspecified; Z79.899 Other long term (current) drug therapy
CPT/HCPCS: 99285; 96360; 96361 ×2; 36415; 93005; 80053; 82150; 82550; 82553; 83690; 84484; 85025; 74018; S0119

== ENCOUNTER 2017-10-20 14:25 | Inpatient (IN) | payer MEDICARE, BC, OTHER ==
[2017-10-20] MEDS ORDERED: SODIUM CHLORIDE 0.9% 500 ML IV STA (15:17)
--- NOTE | 2017-10-20 15:21 | ED ---
General Adult HPI - General Chief complaint: Altered Mental Status Stated complaint: Confusion Time Seen by Provider: 10/20/17 14:25 Source: patient, family, RN notes reviewed Mode of arrival: ambulatory Limitations: altered mental status - History of Present Illness Initial comments: This is a 72-year-old female who comes emergency Department after having had an amnestic episode. Patient forgot all events prior to 1:30 and has never been able to recall them. 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 Patient denied any headache patient denies any numbness or weakness. Patient denied any blurred vision. Patient denied any slurred speech there was no extremity weakness or problems ambulating. Patient denies any chest pain palpitations difficulty breathing shortness of breath. Patient denied any recent fever chills or cough. Patient denied abdominal pain patient denies nausea vomiting diarrhea. Patient denies any previous episode of similar. Patient still is amnestic as to the events prior to 1:30. - Related Data Home Medications Medication Instructions Recorded Confirmed Levothyroxine Sodium [Synthroid] 75 mcg PO DAILY 05/08/15 07/22/17 Pantoprazole Sodium [Protonix] 40 mg PO DAILY 05/08/15 07/22/17 traZODone HCL [Desyrel] 25 mg PO HS 05/08/15 07/22/17 Ranitidine HCl [Zantac] 150 mg PO BID 04/23/16 07/22/17 Loperamide [Imodium] 2 mg PO QID PRN 07/22/17 07/22/17 Mag Hydrox/Al Hydrox/Simeth 30 ml PO DAILY PRN 07/22/17 07/22/17 [Maalox] Previous Rx's Medication Instructions Recorded Ondansetron [Zofran ODT] 4 mg PO Q8HR PRN #10 tab 07/22/17 Allergies Allergy/AdvReac Type Severity Reaction Status Date / Time meperidine [From Demerol] AdvReac Unknown Verified 10/20/17 14:43 Review of Systems ROS Statement: Those systems with pertinent positive or pertinent negative responses have been documented in the HPI. ROS Other: All systems not noted in ROS Statement are negative. Past Medical History Past Medical History: Fibromyalgia, GERD/Reflux, Hyperlipidemia, Thyroid Disorder Additional Past Medical History / Comment(s): sinus problems, hypothyoidism. History of Any Multi-Drug Resistant Organisms: None Reported Past Surgical History: Section Additional Past Surgical History / Comment(s): colonoscopy,egd Past Anesthesia/Blood Transfusion Reactions: No Reported Reaction Additional Past Anesthesia/Blood Transfusion Reaction / Comment(s): PT STATES SHE WAS ON AN ANTIBIOTIC FOR AN INFECTED TOOTH; LEFT LOWER. CAP ON TOOTH IS A LITTLE LOOSE. HAVING HEAD PAIN ON THE LEFT SIDE OF HER HEAD; THINKS IT MAY BE FROM HER TOOTH. Past Psychological History: Anxiety, Depression Smoking Status: Former smoker Past Alcohol Use History: Daily Past Drug Use History: None Reported - Past Family History Mother Family Medical History: Cancer, Deep Vein Thrombosis (DVT) Additional Family Medical History / Comment(s): Mother had colon cancer. She is 91 yrs old. Father History Unknown: Yes General Exam - General Exam Comments Initial Comments: GENERAL: Patient is well-developed and well-nourished. Patient is nontoxic and well- hydrated and is in mild distress. ENT: Neck is soft and supple. No significant lymphadenopathy is noted. Oropharynx is clear. Moist mucous membranes. Neck has full range of motion without eliciting any pain. EYES: The sclera were anicteric and conjunctiva were pink and moist. Extraocular movements were intact and pupils were equal round and reactive to light. Eyelids were unremarkable. PULMONARY: Unlabored respirations. Good breath sounds bilaterally. No audible rales rhonchi or wheezing was noted. CARDIOVASCULAR: There is a regular rate and rhythm without any murmurs gallops or rubs. ABDOMEN: Soft and nontender with normal bowel sounds. No palpable organomegaly was noted. There is no palpable pulsatile mass. SKIN: Skin is clear with no lesions or rashes and otherwise unremarkable. NEUROLOGIC: Patient is alert and oriented x3. Cranial nerves II through XII are grossly intact. Motor and sensory are also intact. Normal speech, volume and content. Symmetrical smile. MUSCULOSKELETAL: Normal extremities with adequate strength and full range of motion. LYMPHATICS: No significant lymphadenopathy is noted PSYCHIATRIC: Normal psychiatric evaluation. Normal interpersonal interactions appears functionally intact in deals appropriately with others. No signs of depression. No signs of anxiety. Limitations: altered mental status Course Vital Signs 10/20/17 10/20/17 14:36 15:58 Temperature 98.1 F Pulse Rate 71 80 Respiratory 18 17 Rate Blood Pressure 178/112 180/87 O2 Sat by Pulse 98 100 Oximetry Medical Decision Making - Medical Decision Making EKG shows normal sinus rhythm at 71 bpm OK interval 238 QRSs 84 QT interval 370 QTC is 402. Patient's EKG shows no ST segment elevation or depression or T wave abnormalities are noted. Chest x-ray shows no acute abnormality - Lab Data Result diagrams: 10/20/17 15:00 10/20/17 15:00 Lab Results 10/20/17 10/20/17 10/20/17 Range/Units 15:00 15:00 15:00 WBC 7.7 (3.8-10.6) k/uL RBC 4.79 (3.80-5.40) m/uL Hgb 14.7 (11.4-16.0) gm/dL Hct 43.9 (34.0-46.0) % MCV 91.5 (80.0-100.0) fL MCH 30.6 (25.0-35.0) pg MCHC 33.4 (31.0-37.0) g/dL RDW 13.3 (11.5-15.5) % Plt Count 327 (150-450) k/uL Neutrophils % 62 % Lymphocytes % 30 % Monocytes % 5 % Eosinophils % 1 % Basophils % 0 % Neutrophils # 4.8 (1.3-7.7) k/uL Lymphocytes # 2.3 (1.0-4.8) k/uL Monocytes # 0.4 (0-1.0) k/uL Eosinophils # 0.1 (0-0.7) k/uL Basophils # 0.0 (0-0.2) k/uL PT (9.0-12.0) sec INR (<1.2) APTT (22.0-30.0) sec Sodium 142 (137-145) mmol/L Potassium 4.2 (3.5-5.1) mmol/L Chloride 106 (98-107) mmol/L Carbon Dioxide 25 (22-30) mmol/L Anion Gap 11 mmol/L BUN 21 H (7-17) mg/dL Creatinine 0.98 (0.52-1.04) mg/dL Est GFR (CKD-EPI)AfAm 68 (>60 ml/min/1.73 sqM) Est GFR (CKD-EPI)NonAf 59 (>60 ml/min/1.73 sqM) Glucose 98 (74-99) mg/dL Calcium 9.8 (8.4-10.2) mg/dL Total Bilirubin 0.3 (0.2-1.3) mg/dL AST 33 (14-36) U/L ALT 31 (9-52) U/L Alkaline Phosphatase 81 (38-126) U/L Total Creatine Kinase 96 (30-135) U/L CK-MB (CK-2) 1.3 (0.0-2.4) ng/mL CK-MB (CK-2) Rel Index 1.4 Troponin I <0.012 (0.000-0.034) ng/mL Total Protein 7.7 (6.3-8.2) g/dL Albumin 4.5 (3.5-5.0) g/dL 10/20/17 Range/Units 15:00 WBC (3.8-10.6) k/uL RBC (3.80-5.40) m/uL Hgb (11.4-16.0) gm/dL Hct (34.0-46.0) % MCV (80.0-100.0) fL MCH (25.0-35.0) pg MCHC (31.0-37.0) g/dL RDW (11.5-15.5) % Plt Count (150-450) k/uL Neutrophils % % Lymphocytes % % Monocytes % % Eosinophils % % Basophils % % Neutrophils # (1.3-7.7) k/uL Lymphocytes # (1.0-4.8) k/uL Monocytes # (0-1.0) k/uL Eosinophils # (0-0.7) k/uL Basophils # (0-0.2) k/uL PT 9.7 (9.0-12.0) sec INR 1.0 (<1.2) APTT 22.4 (22.0-30.0) sec Sodium (137-145) mmol/L Potassium (3.5-5.1) mmol/L Chloride (98-107) mmol/L Carbon Dioxide (22-30) mmol/L Anion Gap mmol/L BUN (7-17) mg/dL Creatinine (0.52-1.04) mg/dL Est GFR (CKD-EPI)AfAm (>60 ml/min/1.73 sqM) Est GFR (CKD-EPI)NonAf (>60 ml/min/1.73 sqM) Glucose (74-99) mg/dL Calcium (8.4-10.2) mg/dL Total Bilirubin (0.2-1.3) mg/dL AST (14-36) U/L ALT (9-52) U/L Alkaline Phosphatase (38-126) U/L Total Creatine Kinase (30-135) U/L CK-MB (CK-2) (0.0-2.4) ng/mL CK-MB (CK-2) Rel Index Troponin I (0.000-0.034) ng/mL Total Protein (6.3-8.2) g/dL Albumin (3.5-5.0) g/dL Disposition Clinical Impression: CVA (cerebral vascular accident) Disposition: ADMITTED IP TO THIS HOSP Is patient prescribed a controlled substance at d/c from ED?: No Referrals: Anatoly Villegas DO [Primary Care Provider] - 1-2 days Time of Disposition: 16:14
[2017-10-20 15:31] LABS: Basophils % (A) 0 %; Eosinophils # (A) 0.1 k/uL (0-0.7); Eosinophils % (A) 1 %; HCT 43.9 % (34.0-46.0); HGB 14.7 gm/dL (11.4-16.0); Lymphocytes # (A) 2.3 k/uL (1.0-4.8); Lymphocytes % (A) 30 %; MCH 30.6 pg (25.0-35.0); MCHC 33.4 g/dL (31.0-37.0); MCV 91.5 fL (80.0-100.0); Mean Platelet Volume 7.3; Monocytes # (A) 0.4 k/uL (0-1.0); Monocytes % (A) 5 %; Neutrophils # (A) 4.8 k/uL (1.3-7.7); Neutrophils % (A) 62 %; Platelet Count 327 k/uL (150-450); RBC 4.79 m/uL (3.80-5.40); RDW 13.3 % (11.5-15.5); WBC 7.7 k/uL (3.8-10.6)
[2017-10-20 15:40] LABS: Albumin 4.5 g/dL (3.5-5.0); Calcium 9.8 mg/dL (8.4-10.2); Potassium 4.2 mmol/L (3.5-5.1); Total Bilirubin 0.3 mg/dL (0.2-1.3); Total Protein 7.7 g/dL (6.3-8.2)
--- NOTE | 2017-10-20 15:41 | XR ---
EXAMINATION TYPE: XR chest 2V DATE OF EXAM: 10/20/2017 COMPARISON: [facility] chest dated 04/23/2016 HISTORY: Altered mental status. TECHNIQUE: Frontal and lateral views of the chest are obtained. FINDINGS: There is no focal air space opacity, pleural effusion, or pneumothorax seen. The cardiac silhouette size is within normal limits. The osseous structures are intact. Mild multilevel degener ative changes of the thoracic spine are seen. IMPRESSION: No acute cardiopulmonary process.
[2017-10-20 15:47] LABS: Partial Thromboplastin Time 22.4 sec (22.0-30.0); Prothrombin Time 9.7 sec (9.0-12.0)
--- NOTE | 2017-10-20 15:51 | CT ---
EXAMINATION TYPE: CT brain wo con DATE OF EXAM: 10/20/2017 COMPARISON: None HISTORY: Neuro deficits, confusion CT DLP: 945.[address] of the brain was performed. The ventricles, basal cisterns and sulci overlying the cerebral convexities demonstrate mild enlargem ent. There is no evidence for intracranial hemorrhage or sulcal effacement. There is decreased attenuation about the periventricular white matter and deep white matter of both c erebral hemispheres, compatible with chronic small vessel ischemia. Differential diagnosis does inclu de demyelination. No mass effects are seen.No midline shift. Osseous calvarium is intact. If symptoms persist consider MRI. IMPRESSION: 1. Age related atrophic and chronic small vessel ischemic change without acute intracranial process s een at this time.
[2017-10-20 15:53] LABS: Creatine Kinase 96 U/L (30-135)
[2017-10-20 16:05] LABS: Creatine Kinase MB 1.3 ng/mL (0.0-2.4); Troponin I <0.012 ng/mL (0.000-0.034)
[2017-10-20] MEDS ORDERED: LOPERAMIDE 2 MG CAP PO PRN (19:48)
[2017-10-20 20:31] VITALS: RESP 16
[2017-10-20] MEDS ORDERED: traZODone HCL 50 MG TAB PO SCH (21:00)
[2017-10-20 21:06] LABS: Appearance,Urine Clear (Clear); Bilirubin,Urine Negative (Negative); Blood,Urine Small (Negative); Color,Urine Light Yellow; Glucose,Urine (UA) Negative (Negative); Ketones,Urine Trace (Negative); Leukocyte Esterase,Urine Negative (Negative); Mucus,Urine Rare /hpf; Nitrite,Urine Negative (Negative); Protein,Urine Negative (Negative); RBC,Urine 6 /hpf (0-5); Specific Gravity,Urine 1.011 (1.001-1.035); Squamous Epithelial Cell,Urine <1 /hpf (0-4); Urobilinogen,Urine <2.0 mg/dL (<2.0); WBC,Urine 1 /hpf (0-5)
[2017-10-20] MEDS: HEPARIN SODIUM,PORCINE 5,000 UNIT/ML 1 ML VIAL SQ SCH (21:51)
[2017-10-21] MEDS ORDERED: LEVOTHYROXINE 75 MCG TAB PO SCH (06:30)
[2017-10-21 06:36] LABS: Basophils % (A) 0 %; Eosinophils # (A) 0.1 k/uL (0-0.7); Eosinophils % (A) 1 %; HCT 41.2 % (34.0-46.0); HGB 13.1 gm/dL (11.4-16.0); Lymphocytes # (A) 3.1 k/uL (1.0-4.8); Lymphocytes % (A) 40 %; MCH 29.5 pg (25.0-35.0); MCHC 31.8 g/dL (31.0-37.0); MCV 92.7 fL (80.0-100.0); Mean Platelet Volume 6.7; Monocytes # (A) 0.4 k/uL (0-1.0); Monocytes % (A) 5 %; Neutrophils % (A) 52 %; Platelet Count 313 k/uL (150-450); RBC 4.45 m/uL (3.80-5.40); RDW 13.7 % (11.5-15.5); WBC 7.7 k/uL (3.8-10.6)
[2017-10-21 06:49] LABS: Calcium 9.3 mg/dL (8.4-10.2); Potassium 4.1 mmol/L (3.5-5.1)
[2017-10-21] MEDS ORDERED: PANTOPRAZOLE 40 MG TABLET PO SCH (07:30)
[2017-10-21] MEDS: HEPARIN SODIUM,PORCINE 5,000 UNIT/ML 1 ML VIAL SQ SCH (07:57)
[2017-10-21 11:20] VITALS: TEMP 97.4
[2017-10-21] MEDS ORDERED: LORazepam 2 MG/ML INJ IV STA (14:01)
--- NOTE | 2017-10-21 15:16 | US ---
EXAMINATION TYPE: US carotid duplex BILAT DATE OF EXAM: 10/21/2017 COMPARISON: NONE CLINICAL HISTORY: CVA. EXAM MEASUREMENTS: RIGHT: Peak Systolic Velocity (PSV) cm/sec ----- Right CCA: 71.0 ----- Right ICA: 86.4 ----- Right ECA: 105.6 ICA/CCA ratio: 1.2 RIGHT: End Diastole cm/sec ----- Right CCA: 24.0 ----- Right ICA: 35.8 ----- Right ECA: 0.0 LEFT: Peak Systolic Velocity (PSV) cm/sec ----- Left CCA: 88.6 ----- Left ICA: 83.1 ----- Left ECA: 78.9 ICA/CCA ratio: 0.9 LEFT: End Diastole cm/sec ----- Left CCA: 23.7 ----- Left ICA: 29.2 ----- Left ECA: 9.5 VERTEBRALS (direction of flow): Right Vertebral: Antegrade Left Vertebral: Antegrade Rhythm: Normal atherosclerotic changes bilaterally. No stenosis seen. Intimal thickening is evident. IMPRESSION: 1. No significant flow-limiting stenosis. 2. Intimal thickening atheromatous plaquing without flow-limiting stenosis. Criteria for Assigning % of Stenosis / Diameter reduction (Estimation based on the indirect measurements of the internal carotid artery velocities (ICA PSV). 1. Normal (no stenosis)=ICA PSV < 125 cm/s: ratio < 2.0: ICA EDV<40 cm/s. 2. Less than 50% stenosis=ICA PSV < 125 cm/s: ratio < 2.0: ICA EDV<40 cm/s. 3. 50 to 69% stenosis=ICA PSV of 125 to 230 cm/s: ration 2.0 ? 4.0: ICA EDV 40-100 cm/s. 4. Greater than 70% stenosis to near occlusion= ICA PSV > 230 cm/s: ratio > 4.0: ICA EDV > 100 cm/s. 5. Near occlusion= ICA PSV velocities may be low or undetectable: variable ratio and ICA EDV. 6. Total occlusion=unable to detect flow.
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
[2017-10-21 15:33] VITALS: BP 124/71; PULSE 71
--- NOTE | 2017-10-21 16:55 | MR ---
EXAMINATION TYPE: MR brain wo con DATE OF EXAM: 10/21/2017 COMPARISON: CT 10/20/2017 HISTORY: 72-year-old female Confusion, neuro deficits, R/O CVA TECHNIQUE: Multiplanar, multisequence images of the brain and brainstem were acquired without IV con trast. Diffusion weighted imaging is performed. FINDINGS: No evidence for acute infarction, hemorrhage, mass, mass effect, midline shift, herniation, effacemen t of basal cisterns, or extra-axial fluid collection. The ventricles and sulci are age-appropriate with mild generalized supratentorial volume loss. Major intracranial flow voids are intact. T2/FLAIR weighted sequences show mild scattered burden of bright white matter change in the subcortic al, deep, and periventricular regions of both cerebral hemispheres. Foci number approximately 10 on e ach side. Midline structures demonstrate normal morphology. The craniocervical junction is normal. Mild mucosal thickening ethmoid air cells. Globes are intact. IMPRESSION: Mild cerebral atrophy and mild changes of chronic small vessel ischemic disease. No acute intracrania l abnormality seen.
--- NOTE | 2017-10-22 09:17 | ECHOF ---
Referral Reason:CVA MEASUREMENTS -------- HEIGHT: 152.4 cm WEIGHT: 71.7 kg BP: RVIDd: 2.4 cm (< 3.3) IVSd: 1.1 cm (0.6 - 1.1) LVIDd: 4.2 cm (3.9 - 5.3) LVPWd: 0.8 cm (0.6 - 1.1) IVSs: 1.4 cm LVIDs: 3.0 cm LVPWs: 1.4 cm LA Diam: 3.6 cm (2.7 - 3.8) Ao Diam: 2.6 cm (2.0 - 3.7) AV Cusp: 1.5 cm (1.5 - 2.6) LA Diam: 3.7 cm (2.7 - 3.8) MV EXCURSION: 14.924 mm (> 18.000) MV EF SLOPE: 42 mm/s (70 - 150) EPSS: 0.6 cm MV E Colton: 0.74 m/s MV DecT: 202 ms MV A Colton: 0.94 m/s MV E/A Ratio: 0.79 RAP: 5.00 mmHg RVSP: 15.50 mmHg FINDINGS -------- Sinus rhythm. LV size, wall thickness and systolic function are normal, with an EF greater than 55%. The left shirlene tricular size is normal. The right ventricle is normal in size. The left atrial size is normal. The right atrial size is normal. The aortic valve is trileaflet, and appears structurally normal. No aortic stenosis or regurgitation. Mild mitral annular calcification present. Mild mitral regurgitation is present. Mild tricuspid regurgitation present. There is no evidence of pulmonary hypertension. The right v entricular systolic pressure, as measured by Doppler, is 15.50mmHg. There is no pulmonic regurgitation present. The aortic root size is normal. There is no pericardial effusion. CONCLUSIONS -------- 1. LV size, wall thickness and systolic function are normal, with an EF greater than 55%. 2. The left ventricular size is normal. 3. The right ventricle is normal in size. 4. The left atrial size is normal. 5. The right atrial size is normal. 6. The aortic valve is trileaflet, and appears structurally normal. No aortic stenosis or regurgitati on. 7. Mild mitral annular calcification present. 8. Mild mitral regurgitation is present. 9. Mild tricuspid regurgitation present. 10. There is no evidence of pulmonary hypertension. 11. The right ventricular systolic pressure, as measured by Doppler, is 15.50mmHg. 12. There is no pulmonic regurgitation present. 13. The aortic root size is normal. 14. There is no pericardial effusion. HAND FOLDER: Gayatri Gayle RDCS
--- NOTE | 2017-10-23 10:46 | CONS ---
CONSULTATION DATE OF CONSULTATION: 10/21/2017 CHIEF COMPLAINT: Transient ischemic attack. HISTORY OF PRESENT ILLNESS: The patient is a pleasant 72-year-old female, who is being evaluated today on 10/21/2017 by the Neurology Service per the request of Dr. Duran for a transient ischemic attack. The patient was brought into [facility] after she had an episode of forgetfulness. The patient was complaining that she did not remember events of the day. Her noticed that she kept asking the same questions over and over again. She denies any previous history similar to this. Her symptoms lasted a couple of hours and resolved spontaneously. She does take aspirin 81 mg daily at home. In the emergency room, a CT scan of the brain was done, which showed no acute findings. A carotid Doppler and MRI of the brain have been ordered. At the time of my evaluation, she is sitting up in her bed and appears to be in no acute distress. She denies any recurrence of any neurological symptoms. She denies any lateralizing numbness or weakness during the episode. Her fasting lipid panel did show evidence of dyslipidemia. The patient was on statin therapy at home but she does not recall why it was discontinued several months ago. PAST MEDICAL HISTORY: Fibromyalgia, gastroesophageal reflux disease, dyslipidemia, hypothyroidism, angina, history of . SOCIAL HISTORY: The patient is a former smoker. She denies any alcohol or drug use. FAMILY HISTORY: Positive for cancer and deep venous thrombosis. HOME MEDICATIONS: Reviewed in the chart. ALLERGIES: DEMEROL. REVIEW OF SYSTEM: CONSTITUTIONAL: Negative. EYES: Negative. ENT: Negative. CARDIOVASCULAR: Negative. RESPIRATORY: Negative. NEUROLOGICAL: As mentioned above. GASTROINTESTINAL: Negative. GENITOURINARY: Negative. DERMATOLOGICAL: Negative. ENDOCRINE: Negative. PSYCHIATRIC: Negative. MUSCULOSKELETAL: Positive for occasional joint pain. PHYSICAL EXAM: Vital signs show a temperature of 97.4, pulse 71, respirations 16, blood pressure 124/71. GENERAL APPEARANCE: The patient is a well-developed female, who appears to be in no acute distress. HEENT: Normocephalic, atraumatic, no facial asymmetry is seen. NECK: Supple with no masses felt. CARDIOVASCULAR: Regular rate and rhythm. ABDOMEN: Nontender, nondistended. Extremities showed no edema or clubbing. NEUROLOGICAL EXAM: The patient is awake and oriented x3. Speech and language are normal. Strength is full in all 4 extremities. Sensory exam was normal to light touch in all 4 extremities. No facial asymmetry seen on cranial nerve testing. No tremors or seizure-like activity is seen. IMPRESSION: 1. Transient ischemic attack. 2. Transient global amnesia. 3. Dyslipidemia. RECOMMENDATION: The patient does appear to have suffered a transient ischemic attack with a transient global aphasia episode lasting a couple of hours. She is on aspirin daily at home and this will be continued. I discussed with her the option of switching to Plavix 75 mg daily. I reviewed with her the results of her workup thus far. If her MRI of the brain and carotid Doppler show no significant abnormalities, she is cleared for discharge from a neurology standpoint. I did start the patient on Lipitor given her fasting lipid panel results. Specific stroke risk factors were discussed with the patient. The patient was advised to seek immediate medical attention if any further stroke-like symptoms occur. Continue the rest of your current workup and management. Thank you for allowing me to participate in the care of your patient. If you have any questions, please feel free to contact me. MMJACY / CASIN: [id number] /
== END 2017-10-21 19:20 | disposition home or self-care (01) | DRG 72 ==
LOC: EC 14:25 → 6SEL 16:15
PROVIDERS: ADMIT Internal Medicine; ATTEND Internal Medicine
DX: G45.4 Transient global amnesia (principal); E03.9 Hypothyroidism, unspecified; E78.5 Hyperlipidemia, unspecified; K21.9 Gastro-esophageal reflux disease without esophagitis; M79.7 Fibromyalgia; F32.9 Major depressive disorder, single episode, unspecified; F41.9 Anxiety disorder, unspecified; R51 Headache; Z79.899 Other long term (current) drug therapy; Z79.890 Hormone replacement therapy; Z88.5 Allergy status to narcotic agent; Z87.891 Personal history of nicotine dependence; Z80.0 Family history of malignant neoplasm of digestive organs; Z82.49 Family history of ischemic heart disease and other diseases of the circulatory system
CPT/HCPCS: 36415; 70450; 70551; 71046; 80048; 80053; 80061; 81001; 82550; 82553; 84443; 84484; 85025; 85610; 85730; 93005; 93306; 93880; 96360; 99285

== ENCOUNTER → 2018-07-29 | Outpatient (CLI) | payer MEDICARE, BC, OTHER ==
--- NOTE | 2018-07-29 22:36 | CONS ---
CONSULTATION DATE OF SERVICE: 07/29/2018 73-year-old lady who has been evaluated in [facility] for possible obstructive sleep apnea-hypopnea syndrome. HISTORY OF PRESENT ILLNESS/SLEEP WAKE EVALUATION: Patient had sleep study about 7 or 8 years ago in another institution, and she was told about mild sleep apnea at that time. SLEEP SCHEDULE: Presently, her sleep schedule from around 11:30 p.m. to 8:10 am. FALLING ASLEEP: Usually she does have problem with falling asleep. No TV in bedroom. DURING SLEEP: She wakes up from sleep up to 5 times with 2 episodes of nocturia. She snores and has episodes of sweating, heartburn, sometimes episodes of panic attack, palpitations during the night. DURING THE DAY/SLEEP WAKE EVALUATION: In the morning, patient wakes up tired worries about her sleep, has problems with memory, concentration, irritability, depression and anxiety. [place] Sleepiness Scale is 8. She may take 1 rest period a day. PAST MEDICAL HISTORY: Positive for hypothyroidism, acid reflux, hyperlipidemia. PAST SURGICAL HISTORY: . FAMILY HISTORY: Heart problems, stroke, fibromyalgia, arthritis, sinus headaches, bronchitis, snoring, pneumonia, cancer, acid reflux, thyroid problems, mental illness. REVIEW OF SYSTEMS: Multiple awakenings from sleep, sometimes tiredness and sleepiness during the day. PHYSICAL EXAM: GENERAL: lady without distress. VITAL SIGNS: BP 124/61, HR 74, RR 18, height 5 feet 1 inch, weight 165, temperature 98.0, oxygen saturation at room air 96%. Body mass index 31.1. HEENT: Oropharynx low position of soft palate. Mallampati 3-4. Slight restriction of nasal breathing. Neck : Supple, no JVD. Thyroid is not palpable. LUNGS Clear to percussion and to auscultation. Good air exchange. No wheezing or rhonchi. HEART S1, S2 regular. No murmurs, gallops, or rubs. ABDOMEN Soft and nontender. Bowel sounds are present. No organomegaly appreciated. EXTREMITIES No clubbing or cyanosis. TELLER VAULT Awake, alert, and oriented X3. Cranial nerves 2 to 7 intact. There is no fasciculation or atrophy. noted. No focal deficits observed. IMPRESSION: 1. Snoring, multiple awakenings from sleep up to 5 times with episodes of nocturia, extremely low position of soft palate, episodes of daytime sleepiness, obstructive sleep apnea-hypopnea syndrome. 2. Hypothyroidism. 3. Acid reflux. 4. Hyperlipidemia. 5. Status post . 6. Mild obesity BMI 31.1. PLAN: 1. Polysomnography for evaluation of patient's breathing during sleep. 2. CPAP/BiPAP titration if sleep study confirms obstructive sleep apnea-hypopnea syndrome. 3. Preferable position during sleep on the side. 4. No driving if patient feels any sleepiness. 5. I will see patient for follow up visit to explain results of testing and following plan. Thank you very much for referring this patient for consultation, Sincerely, Guanaco Caban MD, PhD, FAASM Diplomat of [place] [employer] [place] [employer] Automatic Profile Shaper Operator of [facility] [place] [email or web address] / CASIN: [id number] /
== END ==
LOC: SLEEP 13:26
PROVIDERS: ATTEND Internal Medicine
DX: G47.33 Obstructive sleep apnea (adult) (pediatric) (principal); E03.9 Hypothyroidism, unspecified; K21.9 Gastro-esophageal reflux disease without esophagitis; E78.5 Hyperlipidemia, unspecified; E66.9 Obesity, unspecified; Z68.31 Body mass index [BMI] 31.0-31.9, adult; Z98.890 Other specified postprocedural states
CPT/HCPCS: 99211

== ENCOUNTER → 2019-01-14 | Outpatient (CLI) | payer MEDICARE, BC, OTHER ==
[2019-01-14 15:41] LABS: Chol/HDL Ratio 3.1; LDL Cholesterol,Calculated 131.2 mg/dL (0.0-131.0); VLDL Calculation 17.8 mg/dL (5.00-40.00)
[2019-01-14 15:48] LABS: T4, Free (Free Thyroxine) 1.4 ng/dL (0.80-1.80)
== END | disposition home or self-care (01) ==
LOC: LABWHC1 10:03
PROVIDERS: ATTEND Family Medicine
DX: E03.8 Other specified hypothyroidism (principal); E78.5 Hyperlipidemia, unspecified; Z79.899 Other long term (current) drug therapy
CPT/HCPCS: 36415; 80061; 82565; 84439; 84443; 84450; 84460; 84481; 84520

== ENCOUNTER → 2019-10-25 | Outpatient (CLI) | payer MEDICARE, BC, OTHER ==
[2019-10-25 18:15] LABS: Chol/HDL Ratio 3.85; LDL Cholesterol,Calculated 144.4 mg/dL (0.0-131.0); VLDL Calculation 26.6 mg/dL (5.00-40.00)
[2019-10-25 18:24] LABS: T4, Free (Free Thyroxine) 1.3 ng/dL (0.80-1.80)
== END ==
LOC: LABWHC1 08:09
PROVIDERS: ATTEND Family Medicine
DX: E78.5 Hyperlipidemia, unspecified (principal); M85.80 Other specified disorders of bone density and structure, unspecified site; E03.9 Hypothyroidism, unspecified; Z13.1 Encounter for screening for diabetes mellitus; Z13.9 Encounter for screening, unspecified
CPT/HCPCS: 36415; 80061; 82306; 82533; 82947; 84439; 84443; 84481

== ENCOUNTER → 2020-07-10 | Outpatient (CLI) | payer MEDICARE, BC, OTHER | END | disposition home or self-care (01) | LOC: LABWHC1 16:49 | PROVIDERS: ATTEND Family Medicine | DX: U07.1 COVID-19 (principal) | CPT/HCPCS: U0003; C9803; U0005 ==

== ENCOUNTER → 2021-10-09 | Outpatient (CLI) | payer MEDICARE, BC, OTHER ==
--- NOTE | 2021-10-09 13:24 | XR ---
EXAMINATION TYPE: XR chest 2V DATE OF EXAM: 10/09/2021 COMPARISON: Chest x-ray October 20, 2017 and older studies. HISTORY: Cough. TECHNIQUE: Frontal and lateral views of the chest are obtained. FINDINGS: There is mild chronic parenchymal change without suspicious focal air space opacity, pleur al effusion, or pneumothorax seen. The cardiac silhouette size is stable and within normal limits. The multilevel spurring in the thoracic spine with mild height loss or compression type fracture jamie r thoracolumbar junction redemonstrated IMPRESSION: No acute pulmonary process, no significant change from prior chest x-ray.
== END | disposition home or self-care (01) ==
LOC: RADXRMAIN 12:52
PROVIDERS: ATTEND Family Medicine
DX: R91.8 Other nonspecific abnormal finding of lung field (principal)
CPT/HCPCS: 71046

== ENCOUNTER 2023-02-13 06:11 | Observation (INO) | payer MEDICARE, BC, OTHER ==
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
[2023-02-13 06:51] LABS: Basophils % (A) 0 %; Eosinophils # (A) 0.1 k/uL (0-0.7); Eosinophils % (A) 1 %; HCT 41.8 % (34.0-46.0); HGB 14.3 gm/dL (11.4-16.0); Lymphocytes # (A) 1.8 k/uL (1.0-4.8); Lymphocytes % (A) 17 %; MCH 31.9 pg (25.0-35.0); MCHC 34.3 g/dL (31.0-37.0); MCV 92.9 fL (80.0-100.0); Mean Platelet Volume 7.6; Monocytes # (A) 0.5 k/uL (0-1.0); Monocytes % (A) 5 %; Neutrophils # (A) 8.2 k/uL (1.3-7.7); Neutrophils % (A) 76 %; Platelet Count 287 k/uL (150-450); RDW 12.9 % (11.5-15.5); WBC 10.7 k/uL (3.8-10.6)
[2023-02-13 07:09] LABS: INR 0.9 (<1.2)
--- NOTE | 2023-02-13 07:25 | XR ---
EXAMINATION TYPE: XR chest 2V DATE OF EXAM: 02/13/2023 6:52 AM CLINICAL INDICATION:Female, 78 years old with history of Chest Pain; [facility] COMPARISON: Chest radiographs from 10/09/2021. TECHNIQUE: XR chest 2V Frontal and lateral views of the chest. FINDINGS: Lungs/Pleura: There is no evidence of pleural effusion, focal consolidation, or pneumothorax. Pulmonary vascularity: Unremarkable. Heart/mediastinum: Cardiomediastinal silhouette is unremarkable. Musculoskeletal: No acute osseous pathology. Other findings: None IMPRESSION: No acute cardiopulmonary disease/process.
[2023-02-13] MEDS ORDERED: ASPIRIN 81 MG PO STA (07:26)
[2023-02-13] MEDS ORDERED: NITROGLYCERIN OINT 1 INCH/GM PACKET TOPICAL STA (07:26)
[2023-02-13 07:39] LABS: ALT 21 U/L (4-34); AST 45 U/L (14-36); African American GFR (CKD) 68 (>60 ml/min/1.73 sqM); Albumin 4.4 g/dL (3.5-5.0); Alkaline Phosphatase 74 U/L (38-126); Anion Gap 12 mmol/L; Blood Urea Nitrogen 21 mg/dL (7-17); Calcium 9.7 mg/dL (8.4-10.2); Carbon Dioxide 24 mmol/L (22-30); Chloride 105 mmol/L (98-107); Glucose 119 mg/dL (74-99); Non-African American GFR(CKD) 59 (>60 ml/min/1.73 sqM); Potassium 4.6 mmol/L (3.5-5.1); Sodium 141 mmol/L (137-145); Total Bilirubin 0.5 mg/dL (0.2-1.3); Total Protein 8.1 g/dL (6.3-8.2)
[2023-02-13] MEDS ORDERED: KETOROLAC 15 MG/ML 1 ML VIAL IVP STA (08:16)
--- NOTE | 2023-02-13 08:38 | CT ---
EXAMINATION TYPE: CT brain wo con CT DLP: 1093.7 mGycm, Automated exposure control for dose reduction was used. DATE OF EXAM: 02/13/2023 8:21 AM COMPARISON: 10/20/2017 CLINICAL INDICATION:Female, 78 years old with history of Headache acute, headache TECHNIQUE: Brain: Axial CT images of the brain were obtained with coronal and sagittal reformats created and rev iewed. Contrast used: None. Oral contrast used: None. FINDINGS: Brain: Extra-axial spaces: No abnormal extra-axial fluid collections. Ventricular system: Dilatation in proportion to cerebral atrophy. Cerebral parenchyma: Cerebral atrophy. No acute intraparenchymal hemorrhage or mass effect. The guadalupe -white junction is well differentiated. Scattered hypoattenuating areas are seen within the white mat ter. Cerebellum: Unremarkable. Mass effect: No evidence of midline shift. Intracranial vasculature: Atherosclerotic calcifications of the intracranial vessels. Soft tissues: Normal. Calvarium/osseous structures: No depressed skull fracture. Paranasal sinuses and mastoid air cells: Mild scattered paranasal sinus disease. Visualized orbits: Orbital contents are intact. IMPRESSION: 1. No acute intracranial process. 2. Nonspecific white matter changes, likely secondary to chronic small vessel ischemic disease.
[2023-02-13] MEDS ORDERED: NITROGLYCERIN SL TABS 0.4 MG TAB SUBLINGUAL PRN (10:25)
[2023-02-13] MEDS: NITROGLYCERIN OINT 1 INCH/GM PACKET TOPICAL SCH ×2 (13:18→18:23)
[2023-02-13 18:51] VITALS: RESP 16
[2023-02-13] MEDS ORDERED: KETOROLAC 15 MG/ML 1 ML VIAL IVP PRN (19:38)
[2023-02-13] MEDS ORDERED: traZODone HCL 50 MG TAB PO SCH (21:00)
[2023-02-13] MEDS: ASCORBIC ACID 500 MG TAB PO SCH (21:23)
[2023-02-14] MEDS: NITROGLYCERIN OINT 1 INCH/GM PACKET TOPICAL SCH ×3 (00:32→11:11)
[2023-02-14] MEDS ORDERED: LEVOTHYROXINE 75 MCG TAB PO SCH (06:30)
[2023-02-14] MEDS: PANTOPRAZOLE 40 MG TABLET PO SCH ×2 (07:02→08:54)
[2023-02-14] MEDS ORDERED: ASPIRIN 325 MG TAB PO SCH ×2 (09:00→18:00)
[2023-02-14] MEDS ORDERED: CHOLECALCIFEROL 25 MCG (1000 IU) TABLET PO SCH (09:00)
[2023-02-14] MEDS ORDERED: ZINC SULFATE 220 MG CAP PO SCH (09:00)
[2023-02-14] MEDS ORDERED: ONDANSETRON 4 MG/2 ML VIAL IVP PRN (10:06)
[2023-02-14] MEDS ORDERED: ACETAMINOPHEN TAB 325 MG TAB PO PRN (10:06)
[2023-02-14] MEDS ORDERED: NALOXONE 0.4 MG/ML 1 ML VIAL IVP PRN (10:06)
[2023-02-14] MEDS ORDERED: HYDROcodone/APAP 5-325MG 1 EACH TAB PO PRN (10:06)
[2023-02-14] MEDS ORDERED: CALCIUM CARB-VIT D 500 MG-5 MCG TAB PO SCH (10:15)
[2023-02-14] MEDS: ASCORBIC ACID 500 MG TAB PO SCH (11:20)
[2023-02-14 11:46] VITALS: BP 109/68; PULSE 73; TEMP 98.2
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
[2023-02-14] MEDS ORDERED: AMOXIC-POT CLAV 875-125MG 1 EACH TAB PO SCH (12:45)
--- NOTE | 2023-02-14 12:46 | P.DS ---
Providers Date of admission: 02/13/23 10:25 Expected date of discharge: 02/14/23 Attending physician: Valdo Kohler Consults: 02/13/23 10:25 Consult Physician Urgent Consulting Provider: [facility] Consult Reason/Comments: Chest pain Do you want consulting provider notified?: Yes Primary care physician: Valdo Kohler [facility] Course: * 78-year-old lady with past medical history significant for hypothyroid, fibromyalgia dyslipidemia presented to the emergency department with complains of chest pain symptom onset about one week prior to admission * Patient decided to seek medical attention after worsening symptoms, patient also complained of associated back and jaw discomfort. Patient states pain radiated to her jaw and her face. Patient described chest pain as midsternal radiating to back and THS and this was associated with shortness of breath. She mentioned this was different from her reflux discomfort. Patient did complain of cough however denies associated fever, chills * Workup in ER included CT had which was negative for acute intracranial process, chest x-ray was obtained which was negative for acute intrathoracic process * EKG obtained in ER showed normal sinus rhythm no significant ST segment changes * Blood workup obtained including CBC showed WBC of 10.7 normal hemoglobin and platelet count, d-dimer 0.38 * Serum chemistry sodium 141 potassium 4.6 even 21 creatinine 0.9 * Serial troponins ordered within normal limits * Patient tested negative for Covid * 02/14: Patient seen and evaluated bedside, CT head findings discussed with patient mild elevation in WBC count concern for acute sinusitis as well. We'll do Augmentin for total 5 day course outpatient follow-up with primary care physician recommended to evaluate for CT cervical spine to rule out cervical radiculopathy. Patient seen by cardiology and cleared for discharge REVIEW OF SYSTEMS: Chest pain, headache resolved CONSTITUTIONAL: No fever, no malaise, no fatigue. HEENT: No recent visual problems or hearing problems. Denied any sore throat. CARDIOVASCULAR: No chest pain, orthopnea, PND, no palpitations, no syncope. PULMONARY: No shortness of breath, no cough, no hemoptysis. GASTROINTESTINAL: No diarrhea, no nausea, no vomiting, no abdominal pain. NEUROLOGICAL: No headaches, no weakness, no numbness. HEMATOLOGICAL: Denies any bleeding or petechiae. GENITOURINARY: Denies any burning micturition, frequency, or urgency. MUSCULOSKELETAL/RHEUMATOLOGICAL: Denies any joint pain, swelling, or any muscle pain. ENDOCRINE: Denies any polyuria or polydipsia. PHYSICAL EXAMINATION: GENERAL: The patient is alert and oriented x3, not in any acute distress. Well developed, well nourished. HEENT: Pupils are round and equally reacting to light. EOMI. CARDIOVASCULAR: S1 and S2 present. No murmurs, rubs, or gallops. PULMONARY: Chest is clear to auscultation, no wheezing or crackles. ABDOMEN: Soft, nontender, nondistended, normoactive bowel sounds. No palpable organomegaly. MUSCULOSKELETAL: No joint swelling or deformity. EXTREMITIES: No cyanosis, clubbing, or pedal edema. NEUROLOGICAL: Gross neurological examination did not reveal any focal deficits. SKIN: No rashes. Assessment: Assessment and plan * Chest pain rule out acute coronary syndrome * Headache with sinus congestion suspect acute sinusitis * History of gastroesophageal reflux disease * Fibromyalgia * Dyslipidemia * Patient admitted with workup for ACS, d-dimer within normal limits, troponin within normal limits, serial EKGs ordered/patient seen by cardiology cleared for discharge multiple troponins obtained within normal limits * Seen by cardiology consulted/cleared for discharge * In regards to headache and facial pain, CT head shows sinus congestion mildly elevated WBC count will treat with Augmentin for 5 days * In regards to gastroesophageal reflux disease continue patient on Protonix * In regards to dyslipidemia continue pravastatin Patient Condition at Discharge: Stable Plan - Discharge Summary Discharge Rx Participant: No New Discharge Prescriptions: New Amoxic-Pot Clav 875-125Mg [Augmentin 875-125] 1 each PO Q12HR 5 Days #10 tab Continue traZODone HCL [Desyrel] 25 mg PO HS Levothyroxine Sodium [Synthroid] 75 mcg PO DAILY Pantoprazole Sodium [Protonix] 40 mg PO DAILY Zinc Gluconate [Zinc] 50 mg PO DAILY Multivitamins, Thera [Multivitamin (formulary)] 1 tab PO DAILY Cholecalciferol [Vitamin D3 (25 Mcg = 1000 Iu)] 25 mcg PO DAILY Ascorbic Acid [Vitamin C] 500 mg PO BID Aspirin EC [Ecotrin] 325 mg PO W/SUPPER Calcium Carbonate/Vitamin D3 [Calcium 600 mg-Vit D3 10 mcg (400 Unit)] 1 tab PO DAILY Calcium Carb/Mag Ox/Zinc Sulf [Hve-Ibf-Hugu 334-134-5 mg Tab] 2 tab PO HS Pravastatin Sodium [Pravachol] 20 mg PO MOTH@2100 Discharge Medication List Levothyroxine Sodium [Synthroid] 75 mcg PO DAILY 05/08/15 [History] Pantoprazole Sodium [Protonix] 40 mg PO DAILY 05/08/15 [History] traZODone HCL [Desyrel] 25 mg PO HS 05/08/15 [History] Ascorbic Acid [Vitamin C] 500 mg PO BID 02/13/23 [History] Aspirin EC [Ecotrin] 325 mg PO W/SUPPER 02/13/23 [History] Calcium Carb/Mag Ox/Zinc Sulf [Ggc-Guq-Toub 334-134-5 mg Tab] 2 tab PO HS 02/13/23 [History] Calcium Carbonate/Vitamin D3 [Calcium 600 mg-Vit D3 10 mcg (400 Unit)] 1 tab PO DAILY 02/13/23 [History] Cholecalciferol [Vitamin D3 (25 Mcg = 1000 Iu)] 25 mcg PO DAILY 02/13/23 [History] Multivitamins, Thera [Multivitamin (formulary)] 1 tab PO DAILY 02/13/23 [History] Pravastatin Sodium [Pravachol] 20 mg PO MOTH@2100 02/13/23 [History] Zinc Gluconate [Zinc] 50 mg PO DAILY 02/13/23 [History] Amoxic-Pot Clav 875-125Mg [Augmentin 875-125] 1 each PO Q12HR 5 Days #10 tab 02/14/23 [Rx] Follow up Appointment(s)/Referral(s): Valdo Kohler DO [Primary Care Provider] - 1-2 days (Discussed with your primary care provider regarding CT cervical spine) Discharge Disposition: HOME SELF-CARE
[2023-02-14 13:19] LABS: Chol/HDL Ratio 3.71 Ratio; LDL Cholesterol,Calculated 151.5 mg/dL (0.0-131.0); VLDL Calculation 19.46 mg/dL (5.00-40.00)
[2023-02-14] MEDS ORDERED: NON FORMULARY DRUG (Calcium Carb/Mag Ox/Zinc Sulf [Cal-Mag-Zinc 334-134-5 Mg Tab] 1 EACH T PO SCH (21:00)
[2023-02-16] MEDS ORDERED: PRAVASTATIN SODIUM 20 MG TAB PO SCH (21:00)
== END 2023-02-14 15:31 | disposition home or self-care (01) ==
LOC: EC 06:11 → 3SCARD 10:25 → INTOOBSV 10:25 → 3SCARD 18:01 → UNDODISIN 02-14 15:31
PROVIDERS: ADMIT Family Medicine; ATTEND Family Medicine
DX: R07.9 Chest pain, unspecified (principal); R51.9 Headache, unspecified; R09.81 Nasal congestion; E78.5 Hyperlipidemia, unspecified; M79.7 Fibromyalgia; K21.9 Gastro-esophageal reflux disease without esophagitis; E03.9 Hypothyroidism, unspecified; F41.9 Anxiety disorder, unspecified; F32.A Depression, unspecified; Z20.822 Contact with and (suspected) exposure to COVID-19; Z86.73 Personal history of transient ischemic attack (TIA), and cerebral infarction without residual deficits; Z79.82 Long term (current) use of aspirin; Z79.890 Hormone replacement therapy; Z79.899 Other long term (current) drug therapy; Z88.5 Allergy status to narcotic agent
CPT/HCPCS: 96376; 96374; 99285; 36415; 94760; 93005; 85379; 80061; 80053; 83735; 84484; 85025; 85610; 85730; 87635; 71046; 70450; G0378 ×2; J1885

== ENCOUNTER 2023-11-25 13:16 | Emergency (ER) | payer BC, MEDICARE, OTHER ==
[2023-11-25 13:38] VITALS: TEMP 98.1
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
[2023-11-25 18:21] VITALS: BP 119/80; PULSE 70; RESP 16
== END 2023-11-25 18:25 | disposition home or self-care (01) ==
LOC: EC 13:16
CPT/HCPCS: 70450; 72125; 99285

== ENCOUNTER → 2024-02-03 | Outpatient (CLI) | payer MEDICARE, BC, OTHER ==
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
== END | disposition home or self-care (01) ==
LOC: RADXRMAIN 13:55
PROVIDERS: ATTEND Family Medicine
DX: R05.9 Cough, unspecified (principal)
CPT/HCPCS: 71046